=== PATIENT | male | born 1965 | race African-American/Black ===

== ENCOUNTER 2016-12-26 16:11 | Inpatient (IN) | payer BC, OTHER ==
[~2016-12-26] VITALS: Ht 188 cm; Wt 123.4 kg
[2016-12-26] MEDS ORDERED: PLEASE ENTER ALLERGIES MC SCH ×2 (16:30)
[2016-12-26] MEDS ORDERED: PLEASE ENTER HEIGHT AND WEIGHT MC SCH (16:30)
[2016-12-26] MEDS ORDERED: FLUORESCEIN OPHTHALMIC 1 MG STRIP EACHEYE ONE (16:30)
[2016-12-26] MEDS ORDERED: PROPARACAINE OPHTH 0.5%, 15ML EACHEYE ONE (16:30)
[2016-12-26 17:15] LABS: HEMATOCRIT 44.1 % (39.2-51.8); HEMOGLOBIN 14.8 g/dL (13.7-18.0); WHITE BLOOD COUNT 6.9 x10^3/uL (3.4-10)
[2016-12-26 17:27] LABS: BLOOD UREA NITROGEN 22 mg/dL (7-18)
[2016-12-26] MEDS ORDERED: OMNIPAQUE 350 MG/ML, 100ML BOTTLE ONE (17:55)
[2016-12-26] MEDS ORDERED: AMPICILLIN/SULBACTAM 3 GM in SODIUM CHLORIDE 0.9% 100 ML IV ONE (18:30)
[2016-12-26] MEDS ORDERED: SODIUM CHLORIDE FLUSH 10ML SYR IVF PRN (19:00)
[2016-12-26] MEDS ORDERED: HYDROcodone/APAP 5/325 TABLET PO PRN (19:30)
[2016-12-26] MEDS ORDERED: DOCUSATE 100 MG CAPSULE PO PRN (19:30)
[2016-12-26] MEDS: ENOXAPARIN 40 MG/0.4 ML SQ SCH (19:30)
[2016-12-26] MEDS ORDERED: POLYETHYLENE GLYCOL 17 GM PACKET PO PRN (19:30)
[2016-12-26] MEDS ORDERED: ACETAMINOPHEN 325 MG TABLET PO PRN (19:30)
[2016-12-26] MEDS ORDERED: ONDANSETRON 2MG/ML, 2ML IVPush PRN (19:30)
[2016-12-26 20:46] VITALS: BP 148/93
[2016-12-26] MEDS: SODIUM CHLORIDE FLUSH 10ML SYR IVF SCH (21:00)
[2016-12-26] MEDS: DIPHENHYDRAMINE 25 MG CAPSULE PO PRN (21:32)
[2016-12-27] MEDS: AMPICILLIN/SULBACTAM 3 GM in SODIUM CHLORIDE 0.9% 100 ML IV SCH ×4 (00:51→18:43)
[2016-12-27 02:50] VITALS: BP 133/87
[2016-12-27 04:53] LABS: HEMATOCRIT 43.1 % (39.2-51.8); HEMOGLOBIN 14.5 g/dL (13.7-18.0)
[2016-12-27 04:59] LABS: BLOOD UREA NITROGEN 17 mg/dL (7-18)
[2016-12-27] MEDS: NICOTINE 21 MG/24 HR PATCH.TD24 TD SCH (08:23)
[2016-12-27] MEDS ORDERED: POTASSIUM CHLORIDE 20 MEQ TAB.ER.PRT PO ONE (08:30)
[2016-12-27 08:31] VITALS: BP 152/94
[2016-12-27] MEDS: SODIUM CHLORIDE FLUSH 10ML SYR IVF SCH ×2 (11:34→19:46)
[2016-12-27 13:51] VITALS: BP 149/89
[2016-12-27 19:24] VITALS: BP 141/88
[2016-12-27] MEDS: ENOXAPARIN 40 MG/0.4 ML SQ SCH (19:30)
[2016-12-27] MEDS: DIPHENHYDRAMINE 25 MG CAPSULE PO PRN (22:25)
[2016-12-28] MEDS: AMPICILLIN/SULBACTAM 3 GM in SODIUM CHLORIDE 0.9% 100 ML IV SCH ×2 (00:39→06:00)
[2016-12-28 01:35] VITALS: BP 134/85
[2016-12-28 05:02] LABS: HEMOGLOBIN 14.3 g/dL (13.7-18.0)
[2016-12-28 05:13] LABS: BLOOD UREA NITROGEN 14 mg/dL (7-18)
[2016-12-28 08:10] VITALS: BP 152/96
[2016-12-28] MEDS: NICOTINE 21 MG/24 HR PATCH.TD24 TD SCH (08:10)
[2016-12-28] MEDS: SODIUM CHLORIDE FLUSH 10ML SYR IVF SCH (09:00)
[2016-12-28] MEDS ORDERED: LACT1TAB6 PO ×2 (10:50→11:01)
[2016-12-28] MEDS ORDERED: HYDR-3240 PO (10:50)
[2016-12-28] MEDS ORDERED: AMOX1TAB64 PO ×2 (10:50→10:59)
== END 2016-12-28 11:33 | disposition home or self-care (01) | DRG 158 ==
LOC: ED 16:47 → EDIP 18:50 → 3NE 20:36
PROVIDERS: ADMIT Family Medicine; ATTEND Family Medicine
DX: K04.7 Periapical abscess without sinus (principal); L03.211 Cellulitis of face; E87.6 Hypokalemia; F17.210 Nicotine dependence, cigarettes, uncomplicated; Z71.6 Tobacco abuse counseling
CPT/HCPCS: 36415; 70100; 70487; 80048; 82040; 83605; 84145; 85025; 85651; 86141; 87040; 96365; J0295; Q9967; Q0163

== ENCOUNTER 2018-03-31 03:48 | Inpatient (IN) | payer OTHER ==
[~2018-03-31] VITALS: Ht 188 cm; Wt 130.4 kg
[~2018-03-31 03:48] MED LIST: AMOX1TAB64 PO; HYDR-3240 PO; LACT1TAB6 PO
[2018-03-31] MEDS ORDERED: MORPHINE SULFATE 4 MG/ML, 1ML IVPush PRN (05:00)
[2018-03-31] MEDS ORDERED: ONDANSETRON 2MG/ML, 2ML IVPush ONE (05:00)
[2018-03-31] MEDS ORDERED: DIAZEPAM 5 MG/ML, 2ML IV ONE (05:00)
[2018-03-31] MEDS ORDERED: PLEASE ENTER HEIGHT AND WEIGHT MC SCH (05:00)
[2018-03-31] MEDS ORDERED: SODIUM CHLORIDE FLUSH 10ML SYR IVF ONE (05:00)
[2018-03-31 05:09] LABS: BASOPHILS # (AUTO) 0.02 x10^3/uL (0-0.1); BASOPHILS % (AUTO) 0 % (0-1); EOSINOPHILS # (AUTO) 0.03 x10^3/uL (0-0.4); EOSINOPHILS % (AUTO) 0 % (1-7); LYMPHOCYTES # (AUTO) 1.51 x10^3/uL (1-3.4); LYMPHOCYTES % (AUTO) 21 % (22-44); MD NO; MEAN CORPUSCULAR HEMOGLOBIN 32.9 pg (27.5-34.5); MEAN CORPUSCULAR HGB CONC 34.3 g/dL (33.2-36.2); MEAN CORPUSCULAR VOLUME 96.2 fL (81-97); MEAN PLATELET VOLUME 8.8 fL (7.4-10.4); MONOCYTES # (AUTO) 0.47 x10^3/uL (0.2-0.8); MONOCYTES % (AUTO) 7 % (2-9); NEUTROPHILS # (AUTO) 5.17 x10^3/uL (1.8-6.8); NEUTROPHILS % (AUTO) 72 % (42-75); PLATELET COUNT 216 x10^3/uL (130-400); RED BLOOD COUNT 4.72 x10^6/uL (4.38-5.82); RED CELL DISTRIBUTION WIDTH 14.6 % (9.4-14.8)
[2018-03-31] MEDS ORDERED: ONDANSETRON 2MG/ML, 2ML ONE ×2 (05:15→12:09)
[2018-03-31] MEDS ORDERED: MORPHINE SULFATE 4 MG/ML, 1ML ONE (05:16)
[2018-03-31 05:26] LABS: ALBUMIN 3.8 g/dL (3.4-5.0); ANION GAP 8 mmol/L (5-15); CALCIUM 8.4 mg/dL (8.5-10.1); CHLORIDE 109 mmol/L (98-107)
[2018-03-31 05:33] LABS: CREATININE 0.91 mg/dL (0.7-1.3); TROPONIN I < 0.015 ng/mL (0.000-0.045)
[2018-03-31] MEDS ORDERED: ASPIRIN 81 MG TABLET CHEW PO ONE (07:30)
[2018-03-31] MEDS ORDERED: OMNIPAQUE 350 MG/ML, 150 ML BOTTLE ONE (08:17)
[2018-03-31] MEDS ORDERED: ASPIRIN 81 MG TABLET CHEW ONE (09:15)
[2018-03-31] MEDS ORDERED: SODIUM CHLORIDE FLUSH 10ML SYR IVF PRN (10:00)
[2018-03-31 10:41] VITALS: BP 148/90
[2018-03-31] MEDS ORDERED: PROMETHAZINE 25 MG/ML, 1ML IM PRN (11:30)
[2018-03-31] MEDS ORDERED: GUAIFENESIN/DM 200-20MG, 10ML UDC PO PRN (11:30)
[2018-03-31] MEDS: ACETAMINOPHEN 325 MG TABLET PO PRN ×3 (11:59→18:49)
[2018-03-31] MEDS: NICOTINE 21 MG/24 HR PATCH.TD24 TD SCH (12:14)
[2018-03-31] MEDS: ENOXAPARIN 40 MG/0.4 ML SQ SCH (12:14)
[2018-03-31] MEDS: LACTATED RINGERS 1,000 ML IV SCH (12:14)
[2018-03-31 12:21] LABS: HEMOGLOBIN A1C 5.6 % (4.2-6.3)
[2018-03-31 12:28] LABS: CHOLESTEROL, TOTAL 149 mg/dL (140-239); TRIGLYCERIDES 150 mg/dL (50-200); VLDL CHOLESTEROL 30 mg/dL (0-25)
[2018-03-31] MEDS ORDERED: ONDANSETRON 2MG/ML, 2ML IVPush PRN (12:30)
[2018-03-31] MEDS ORDERED: ONDANSETRON ODT 4 MG PO PRN (12:30)
[2018-03-31 12:31] LABS: CHOL/HDL RATIO 2.8; HDL CHOL % 36 % (26-37); HDL CHOLESTEROL (DIRECT) 53 mg/dL (40-60); LDL CHOLESTEROL,CALCULATED 66 mg/dL (54-169); LDL/HDL RATIO 1.2 (0.5-3.0); TROPONIN I < 0.015 ng/mL (0.000-0.045)
[2018-03-31 14:15] VITALS: BP 133/79
[2018-03-31 17:22] LABS: TROPONIN I < 0.015 ng/mL (0.000-0.045)
[2018-03-31 19:47] VITALS: BP 132/70
[2018-03-31] MEDS: FAMOTIDINE 20 MG TABLET PO SCH (20:45)
[2018-04-01] MEDS: ACETAMINOPHEN 325 MG TABLET PO PRN ×6 (00:16→23:10)
[2018-04-01 01:15] VITALS: BP 134/69
[2018-04-01] MEDS: LACTATED RINGERS 1,000 ML IV SCH ×2 (04:15→23:10)
[2018-04-01 06:42] LABS: BASOPHILS # (AUTO) 0.04 x10^3/uL (0-0.1); BASOPHILS % (AUTO) 1 % (0-1); EOSINOPHILS # (AUTO) 0.07 x10^3/uL (0-0.4); EOSINOPHILS % (AUTO) 1 % (1-7); LYMPHOCYTES # (AUTO) 2.14 x10^3/uL (1-3.4); LYMPHOCYTES % (AUTO) 39 % (22-44); MD NO; MEAN CORPUSCULAR HEMOGLOBIN 33.4 pg (27.5-34.5); MEAN CORPUSCULAR HGB CONC 34.5 g/dL (33.2-36.2); MEAN CORPUSCULAR VOLUME 96.9 fL (81-97); MEAN PLATELET VOLUME 8.8 fL (7.4-10.4); MONOCYTES # (AUTO) 0.49 x10^3/uL (0.2-0.8); MONOCYTES % (AUTO) 9 % (2-9); NEUTROPHILS # (AUTO) 2.78 x10^3/uL (1.8-6.8); NEUTROPHILS % (AUTO) 50 % (42-75); PLATELET COUNT 208 x10^3/uL (130-400); RED BLOOD COUNT 4.39 x10^6/uL (4.38-5.82); RED CELL DISTRIBUTION WIDTH 14.9 % (9.4-14.8)
[2018-04-01 06:44] LABS: ANION GAP 7 mmol/L (5-15); CALCIUM 8.5 mg/dL (8.5-10.1); CHLORIDE 107 mmol/L (98-107)
[2018-04-01 06:55] VITALS: BP 164/94
[2018-04-01 06:55] LABS: CREATININE 0.94 mg/dL (0.7-1.3); THYROID STIMULATING HORMONE 0.146 mIU/L (0.358-3.740)
[2018-04-01] MEDS: ASPIRIN 325 MG TABLET EC PO SCH (08:54)
[2018-04-01] MEDS: FAMOTIDINE 20 MG TABLET PO SCH ×2 (08:54→21:40)
[2018-04-01] MEDS: ENOXAPARIN 40 MG/0.4 ML SQ SCH (11:32)
[2018-04-01] MEDS: NICOTINE 21 MG/24 HR PATCH.TD24 TD SCH (11:33)
[2018-04-01 12:10] VITALS: BP 160/88
[2018-04-01 19:45] VITALS: BP 150/98
[2018-04-02 02:00] VITALS: BP 155/95
[2018-04-02 04:56] VITALS: BP 154/98
[2018-04-02] MEDS: ACETAMINOPHEN 325 MG TABLET PO PRN ×3 (05:03→20:17)
[2018-04-02 06:46] VITALS: BP 149/90
[2018-04-02] MEDS: ASPIRIN 325 MG TABLET EC PO SCH (08:25)
[2018-04-02] MEDS: FAMOTIDINE 20 MG TABLET PO SCH ×2 (08:25→20:17)
[2018-04-02] MEDS ORDERED: KETOROLAC 30 MG/1 ML IV ONE (11:30)
[2018-04-02] MEDS ORDERED: hydrALAzine 20 MG/ML, 1ML IV PRN (12:00)
[2018-04-02] MEDS: ENOXAPARIN 40 MG/0.4 ML SQ SCH (12:37)
[2018-04-02] MEDS: NICOTINE 21 MG/24 HR PATCH.TD24 TD SCH (12:37)
[2018-04-02 13:27] VITALS: BP 160/94
[2018-04-02 18:58] VITALS: BP_SYST 153; BP_SYST 162; BP_DIAS 102; BP_DIAS 94
[2018-04-03 00:42] VITALS: BP 157/99
[2018-04-03] MEDS: ACETAMINOPHEN 325 MG TABLET PO PRN (04:45)
[2018-04-03 07:28] VITALS: BP 156/115
[2018-04-03] MEDS: FAMOTIDINE 20 MG TABLET PO SCH ×2 (08:54→20:19)
[2018-04-03] MEDS: ASPIRIN 325 MG TABLET EC PO SCH (08:54)
[2018-04-03] MEDS: HYDROCHLOROTHIAZIDE 25 MG TABLET PO SCH (08:55)
[2018-04-03] MEDS: IBUPROFEN 200 MG TABLET PO PRN ×2 (10:33→18:41)
[2018-04-03] MEDS ORDERED: GADOBUTROL 15 MMOL/15 ML VIAL ONE (13:29)
[2018-04-03] MEDS: NICOTINE 21 MG/24 HR PATCH.TD24 TD SCH (14:17)
[2018-04-03] MEDS: ENOXAPARIN 40 MG/0.4 ML SQ SCH (14:17)
[2018-04-03 14:46] VITALS: BP 153/81
[2018-04-03 19:02] VITALS: BP 149/95
[2018-04-04] MEDS: ACETAMINOPHEN 325 MG TABLET PO PRN ×2 (00:20→09:15)
[2018-04-04 00:56] VITALS: BP 123/72
[2018-04-04] MEDS: HYDROCHLOROTHIAZIDE 25 MG TABLET PO SCH (09:03)
[2018-04-04] MEDS: FAMOTIDINE 20 MG TABLET PO SCH (09:03)
[2018-04-04] MEDS: ASPIRIN 325 MG TABLET EC PO SCH (09:03)
[2018-04-04 09:42] VITALS: BP 154/100
[2018-04-04] MEDS ORDERED: METOPROLOL TARTRATE 25 MG TABLET PO SCH (10:30)
[2018-04-04] MEDS ORDERED: ASPI-650 PO (10:34)
[2018-04-04] MEDS ORDERED: METO25TA35 PO (10:34)
[2018-04-04] MEDS ORDERED: HYDR25TA6 PO (10:34)
[2018-04-04] MEDS: IBUPROFEN 200 MG TABLET PO PRN (11:25)
[2018-04-04] MEDS: NICOTINE 21 MG/24 HR PATCH.TD24 TD SCH (11:25)
[2018-04-04] MEDS: ENOXAPARIN 40 MG/0.4 ML SQ SCH (11:25)
[2018-04-04 13:33] VITALS: BP 127/82
== END 2018-04-04 17:19 | disposition home or self-care (01) | DRG 73 ==
LOC: ED 06:10 → EDIP 09:32 → 4EST 10:33
PROVIDERS: ADMIT Internal Medicine; ATTEND Hospitalist
DX: G90.2 Horner's syndrome (principal); I77.74 Dissection of vertebral artery; E66.9 Obesity, unspecified; F17.210 Nicotine dependence, cigarettes, uncomplicated; I10 Essential (primary) hypertension; M54.40 Lumbago with sciatica, unspecified side; M51.26 Other intervertebral disc displacement, lumbar region; M48.07 Spinal stenosis, lumbosacral region; Z81.8 Family history of other mental and behavioral disorders; Z82.0 Family history of epilepsy and other diseases of the nervous system; Z86.73 Personal history of transient ischemic attack (TIA), and cerebral infarction without residual deficits; Z68.36 Body mass index [BMI] 36.0-36.9, adult
CPT/HCPCS: 36415; 70450; 70496; 70498; 70546; 70551; 70553; 71045; 72156; 72158; 80048; 80061; 82040; 83036; 83735; 84443; 84484; 85025; 93005; 93306; 96374; 96375; 99285; A9585; G0378; J1650; J1885; J2405; J3360; Q9967; 92523-GN; J7120

== ENCOUNTER → 2018-09-28 | Outpatient (CLI) | payer OTHER ==
[~2018-09-28] MED LIST changes: +ASPI-650 PO; +HYDR25TA6 PO; +METO25TA35 PO; +None per pt
[2018-09-28 12:35] LABS: MICROSCOPIC AUTO
[2018-09-28 12:36] LABS: INTERNATIONAL NORMALIZED RATIO 0.99 (0.93-1.1); PROTHROMBIN TIME 10.4 Seconds (9.6-11.5)
[2018-09-28 12:38] LABS: ANION GAP 7 mmol/L (5-15); CALCIUM 8.5 mg/dL (8.5-10.1); CHLORIDE 108 mmol/L (98-107); CREATININE 0.93 mg/dL (0.7-1.3)
[2018-09-28 12:41] LABS: BASOPHILS # (AUTO) 0.04 x10^3/uL (0-0.1); BASOPHILS % (AUTO) 1 % (0-1); EOSINOPHILS # (AUTO) 0.07 x10^3/uL (0-0.4); EOSINOPHILS % (AUTO) 2 % (1-7); LYMPHOCYTES # (AUTO) 1.72 x10^3/uL (1-3.4); LYMPHOCYTES % (AUTO) 35 % (22-44); MD NO; MEAN CORPUSCULAR HEMOGLOBIN 32.2 pg (27.5-34.5); MEAN CORPUSCULAR HGB CONC 33.2 g/dL (33.2-36.2); MEAN CORPUSCULAR VOLUME 96.9 fL (81-97); MEAN PLATELET VOLUME 8.4 fL (7.4-10.4); MONOCYTES % (AUTO) 10 % (2-9); NEUTROPHILS # (AUTO) 2.63 x10^3/uL (1.8-6.8); NEUTROPHILS % (AUTO) 53 % (42-75); PLATELET COUNT 243 x10^3/uL (130-400); RED BLOOD COUNT 4.72 x10^6/uL (4.38-5.82); RED CELL DISTRIBUTION WIDTH 14.8 % (9.4-14.8)
[2018-09-28 12:52] LABS: CULTURE INDICATED? NO
== END | disposition home or self-care (01) ==
LOC: STAR 11:32
PROVIDERS: ATTEND Neurological Surgery
DX: Z01.811 Encounter for preprocedural respiratory examination (principal); M51.36 Other intervertebral disc degeneration, lumbar region; R79.1 Abnormal coagulation profile; I44.4 Left anterior fascicular block; I51.7 Cardiomegaly
CPT/HCPCS: 36415; 71046; 80048; 81001; 85025; 85610; 85730; 93005

== ENCOUNTER 2018-10-02 13:13 | Observation (INO) | payer OTHER ==
[~2018-10-02] VITALS: Ht 188 cm; Wt 138.2 kg
[~2018-10-02 13:13] MED LIST changes: +BACITRACIN 50,000 UNIT ONE; +BUPIVACAINE 0.25% ONE; +BUPIVACAINE/EPI 0.5% 1:200K ONE; +THROMBIN 5,000 UNIT VIAL TP ONE
[2018-10-02] MEDS ORDERED: LACTATED RINGERS 1,000 ML IV SCH (13:22)
[2018-10-02] MEDS ORDERED: ACETAMINOPHEN 500 MG TABLET PO ONE (13:30)
[2018-10-02] MEDS ORDERED: GABAPENTIN 300 MG CAPSULE PO ONE (13:30)
[2018-10-02] MEDS ORDERED: FENTANYL PF 250 MCG/5ML ONE (13:39)
[2018-10-02] MEDS ORDERED: MIDAZOLAM 1 MG/ML, 2ML ONE (13:39)
[2018-10-02] MEDS ORDERED: PROPOFOL 100 ML ONE (13:41)
[2018-10-02 13:50] VITALS: BP 155/100
[2018-10-02] MEDS ORDERED: DEXAMETHASONE 4 MG/ML, 1ML ONE ×2 (15:02)
[2018-10-02] MEDS ORDERED: CEFAZOLIN 1,000 MG ONE ×2 (15:11)
[2018-10-02] MEDS ORDERED: EPHEDRINE 50 MG/ML, 1ML ONE (15:27)
[2018-10-02] MEDS ORDERED: BUPIVACAINE LIPOSOME/PF 20ML INFIL ONE (16:15)
[2018-10-02] MEDS ORDERED: SUCCINYLCHOLINE 20 MG/ML, 10ML ONE (16:16)
[2018-10-02] MEDS ORDERED: ONDANSETRON 2MG/ML, 2ML ONE (16:16)
[2018-10-02] MEDS ORDERED: ROCURONIUM 10MG/ML,5ML ONE (16:16)
[2018-10-02] MEDS ORDERED: PROPOFOL 10 MG/ML, 20ML ONE (16:16)
[2018-10-02] MEDS ORDERED: MEPERIDINE/PF 25MG/0.5ML IVPush PRN (16:30)
[2018-10-02] MEDS ORDERED: OXYcodone 5 MG/5 ML ORAL.SOL UDC PO PRN (16:30)
[2018-10-02] MEDS ORDERED: ONDANSETRON 2MG/ML, 2ML IV PRN (16:30)
[2018-10-02] MEDS ORDERED: FENTANYL PF 100 MCG/2ML IV PRN (16:30)
[2018-10-02] MEDS ORDERED: PROMETHAZINE 25 MG/ML, 1ML IV PRN (16:30)
[2018-10-02] MEDS ORDERED: HYDROmorphone 2 MG/ML, 1ML IVPush PRN (16:30)
[2018-10-02] MEDS ORDERED: hydrALAzine 20 MG/ML, 1ML IV PRN (16:30)
[2018-10-02] MEDS ORDERED: LABETALOL 5MG/ML, 20ML IV PRN (16:30)
[2018-10-02] MEDS ORDERED: HYDROcodone/APAP 5/325 TABLET PO PRN (17:00)
[2018-10-02] MEDS ORDERED: ONDANSETRON 2MG/ML, 2ML IVPush PRN (17:00)
[2018-10-02] MEDS ORDERED: HYDROcodone/APAP 10/325 MG TABLET PO PRN (17:00)
[2018-10-02] MEDS ORDERED: METHOCARBAMOL 750 MG TABLET PO PRN (17:00)
[2018-10-02] MEDS ORDERED: PROMETHAZINE 25 MG/ML, 1ML IM PRN (17:00)
[2018-10-02] MEDS ORDERED: DIPHENHYDRAMINE 50 MG CAPSULE PO PRN (17:00)
[2018-10-02] MEDS ORDERED: PHARMACY MAY ADJ FOR RENAL FX MC PRN (17:00)
[2018-10-02] MEDS ORDERED: D5%-0.9% NACL+KCL 20MEQ 1,000 ML IV SCH (17:00)
[2018-10-02] MEDS ORDERED: morphine SULFATE 10 MG/ML, 1ML IVPush PRN (17:00)
[2018-10-02] MEDS ORDERED: OXYcodone/APAP 5/325MG TABLET PO PRN (17:00)
[2018-10-02] MEDS ORDERED: FENTANYL PF 100 MCG/2ML ONE (17:25)
[2018-10-02] MEDS ORDERED: OXYcodone 5 MG/5 ML ORAL.SOL UDC ONE (17:25)
[2018-10-02 20:21] VITALS: BP 134/81
[2018-10-02] MEDS ORDERED: SODIUM CHLORIDE FLUSH 10ML SYR IVF SCH (21:00)
[2018-10-02] MEDS ORDERED: CEFAZOLIN PMX 1GM/50ML 50 ML IVPB SCH (21:00)
== END 2018-10-02 22:18 | disposition home or self-care (01) ==
LOC: OR 13:13 → ORIP 16:57 → 4NOR 18:02
PROVIDERS: ADMIT Neurological Surgery; ATTEND Neurological Surgery
DX: M48.061 Spinal stenosis, lumbar region without neurogenic claudication (principal); M51.16 Intervertebral disc disorders with radiculopathy, lumbar region; I10 Essential (primary) hypertension; E66.01 Morbid (severe) obesity due to excess calories; F17.210 Nicotine dependence, cigarettes, uncomplicated; Z68.39 Body mass index [BMI] 39.0-39.9, adult; Z79.899 Other long term (current) drug therapy
CPT/HCPCS: 63047; 72100; 96365; C9290; G0378; J0330; J0690; J1100; J2250; J2405; J2704; J3010; J7120; J3490